=== PATIENT | female | born 1965 | race Asian ===

== ENCOUNTER 2017-07-15 13:21 | Outpatient (CLI) | payer BC ==
[~2017-07-15 13:21] MED LIST: Gadobenate Dimeglumine 529 MG/1 ML (20ML VIAL) ONE
== END 2017-07-15 13:22 | disposition home or self-care (01) ==
LOC: BICMRI 13:21
PROVIDERS: ATTEND Obstetrics & Gynecology Gynecologic Oncology
DX: R19.00 Intra-abdominal and pelvic swelling, mass and lump, unspecified site (principal); N83.01 Follicular cyst of right ovary; K76.89 Other specified diseases of liver
CPT/HCPCS: 72197; 74183; A9579

== ENCOUNTER 2018-04-30 09:00 | Outpatient (CLI) | payer BC ==
--- NOTE | 2018-04-30 11:29 | ULT ---
ABDOMINAL ULTRASOUND: Date: 04/30/18 HISTORY: Right upper quadrant pain. COMPARISON: None. TECHNIQUE: Utilizing a multihertz transducer, sonographic imaging of the right upper quadrant is performed in th e longitudinal and transverse plane. FINDINGS: The visualized pancreatic parenchyma has a normal echotexture. IVC is patent. Appropriate direction of flow. Hepatic parenchyma has a normal echotexture. No hepatic masses or intrahepatic biliary dilatation. Co ntour of the hepatic margin maintained. Right hepatic lobe measures 12.1 cm. Both kidneys have a normal cortical echotexture. Bilaterally, no hydronephrosis. Right kidney measure s 11.2 x 3.5 x 4.6 cm. Left kidney measures 9.3 x 4.3 x 3.5 cm. Spleen has a normal echotexture, measuring 8.8 cm. No sonographic evidence of cholelithiasis, gallbladder wall thickening, or pericholecystic fluid. Neg ative Marie's sign. Common bile duct diameter is 0.3 cm. IMPRESSION: No sonographic evidence of cholelithiasis or cholecystitis. POS: [facility]
== END 2018-04-30 09:01 | disposition home or self-care (01) ==
LOC: SCSULT 09:00
PROVIDERS: ATTEND Internal Medicine Gastroenterology
DX: R10.11 Right upper quadrant pain (principal); R10.30 Lower abdominal pain, unspecified; R11.0 Nausea; R14.2 Eructation; C56.1 Malignant neoplasm of right ovary
CPT/HCPCS: 76700; 87338

== ENCOUNTER 2018-07-27 08:34 | Outpatient (CLI) | payer BC ==
--- NOTE | 2018-07-27 10:25 | RAD ---
EXAM: THORACIC SPINE THREE VIEWS: History: 52-year-old female with history of other specified thoracic dorsopathies. Arthritis. FINDINGS: No fracture, dislocation, or other significant acute process. Mild generalized disc osteophytosis. IMPRESSION: Mild thoracic spine spondylosis. No other acute process. POS: [facility]
== END 2018-07-27 08:35 | disposition home or self-care (01) ==
LOC: BICRAD 08:34
PROVIDERS: ATTEND Internal Medicine Rheumatology
DX: M53.84 Other specified dorsopathies, thoracic region (principal); M47.814 Spondylosis without myelopathy or radiculopathy, thoracic region
CPT/HCPCS: 72072

== ENCOUNTER 2022-12-02 12:32 | Outpatient (CLI) | payer BC ==
[~2022-12-02 12:32] MED LIST changes: -Gadobenate Dimeglumine 529 MG/1 ML (20ML VIAL) ONE; +Magnevist 469MG/ML 20 ML VIAL ONE
== END 2022-12-02 12:33 | disposition home or self-care (01) ==
LOC: BICMRI 12:32
DX: M54.81 Occipital neuralgia (principal); R90.89 Other abnormal findings on diagnostic imaging of central nervous system; R29.898 Other symptoms and signs involving the musculoskeletal system
CPT/HCPCS: 70553; 72141; 82565; A9579

== ENCOUNTER 2023-06-18 16:00 | Outpatient (CLI) | payer BC | END 2023-06-18 16:01 | disposition home or self-care (01) | LOC: SLEEPLAB 16:00 | PROVIDERS: ATTEND Family Medicine | DX: G47.33 Obstructive sleep apnea (adult) (pediatric) (principal); R51.9 Headache, unspecified; F41.9 Anxiety disorder, unspecified; R06.83 Snoring; I10 Essential (primary) hypertension | CPT/HCPCS: 95800 ==